=== PATIENT | male | born 1995 | race Hispanic/Latino ===

== ENCOUNTER 2018-11-22 16:28 | Emergency (ER) | payer MEDICARE ==
[2018-11-22 17:05] VITALS: BP 125/82; PULSE 98; RESP 20; TEMP 98.6; O2SAT 96
--- NOTE | 2018-11-22 17:07 | C.PDOC ---
History Of Present Illness Patient is a 23 year old male, with a PMHx of mental retardation, ADHD, ADD, and autism, who presents [facility] the ED from his shelter for evaluation of blood in his stool, as per his aide. Patient states that when he was trying to go to the bathroom he pushed too hard and then when he went a second time he ended up with blood in his stool. He states that this has happened intermittently in the past. Patient denies any nausea, vomiting, abdominal pain, diarrhea, or weakness. Time Seen by Provider: 11/22/18 16:54 Chief Complaint (Nursing): Abdominal Pain History Per: Patient, Other (aide ) History/Exam Limitations: no limitations Onset/Duration Of Symptoms: Days Associated Symptoms: denies: Nausea, Vomiting, Diarrhea, Other (weakness) Recent travel outside of the [place]: No Additional History Per: Patient Past Medical History Reviewed: Historical Data, Nursing Documentation, Vital Signs Vital Signs: Last Vital Signs Temp 98.6 F 11/22/18 16:40 Pulse 98 H 11/22/18 16:40 Resp 20 11/22/18 16:40 BP 125/82 11/22/18 16:40 Pulse Ox 96 11/22/18 16:40 - Medical History PMH: HTN Surgical History: No Surg Hx Family History: States: No Known Family Hx - Social History Hx Alcohol Use: No Hx Substance Use: No - Immunization History Hx Influenza Vaccination: (unknown) Review Of Systems Constitutional: Negative for: Weakness Gastrointestinal: Positive for: Hematochezia. Negative for: Nausea, Vomiting, Abdominal Pain, Diarrhea Physical Exam - Physical Exam Appears: Non-toxic, No Acute Distress Skin: Normal Color, Warm, Dry Head: Atraumatic, Normacephalic Eye(s): bilateral: Normal Inspection Oral Mucosa: Moist Neck: Normal ROM, Supple Chest: Symmetrical, No Deformity Cardiovascular: Rhythm Regular, No Murmur Respiratory: Normal Breath Sounds, No Rales, No Rhonchi, No Wheezing Gastrointestinal/Abdominal: Soft, No Tenderness, Other (obese) Rectal: No Hemorrhoids (external ), Other (active bleeding or external fissures. Patient declined digital exam. ) Neurological/Psych: Normal Speech (asking questions ), Normal Motor ED Course And Treatment O2 Sat by Pulse Oximetry: 96 (on RA) Pulse Ox Interpretation: Normal Medical Decision Making Medical Decision Making: Impression: No active bleeding. Patient declined digital exam. Internal hemorrhoids, constipation, and bleeding with bowel movements. Patient's team asked for psychiatric evaluation because he was becoming agitated, but patient was agitated because he wanted to leave. No psychiatric evaluation today. Discussed care with manager treasury over phone. Agreed with care and discharge. Patient was discharged home and team was instructed to have patient follow up with PMD. Disposition Counseled Patient/Family Regarding: Diagnosis, Need For Followup - Disposition Disposition: HOME/ ROUTINE Disposition Time: 17:07 Condition: STABLE Additional Instructions: Please follow up with your regular doctor for further evaluation. No active bleeding at this time. Instructions: Bloody Stools, Adult (DC) Forms: General Discharge Instructions - POA Present On Arrival: None - Clinical Impression Clinical Impression: Rectal bleeding - Scribe Statement The provider has reviewed the documentation as recorded by the Abby Lockhart All medical record entries made by the Abby were at my direction and personally dictated by me. I have reviewed the chart and agree that the record accurately reflects my personal performance of the history, physical exam, medical decision making, and the department course for this patient. I have also personally directed, reviewed, and agree with the discharge instructions and disposition.
== END 2018-11-22 17:56 | disposition home or self-care (01) ==
LOC: C.ER 16:28
DX: K62.5 Hemorrhage of anus and rectum (principal)

== ENCOUNTER 2018-12-08 17:52 | Emergency (ER) | payer MEDICARE, OTHER ==
[2018-12-08] MEDS ORDERED: Sodium Chloride 0.9% 1,000 ML IV ONE (18:11)
--- NOTE | 2018-12-08 18:22 | C.PDOC ---
History Of Present Illness 23 y/o male presents to the ER complaining of fever,cough, vomiting, weakness, and malaise which has been present for the past 1 week. Patient states that his last vomiting episode was [employer]. Patient denies having CP, SOB, abdominal pain, and diarrhea. <Aidee Neri - Last Filed: 12/08/18 18:49> History Per: Patient History/Exam Limitations: no limitations Onset/Duration Of Symptoms: Days Current Symptoms Are (Timing): Still Present Severity: Moderate <Aidee Neri - Last Filed: 12/08/18 18:49> <Nunu Caliyumiko - Last Filed: 12/08/18 21:03> Time Seen by Provider: 12/08/18 18:18 Chief Complaint (Nursing): Fever Past Medical History Reviewed: Historical Data, Nursing Documentation, Vital Signs Vital Signs: Last Vital Signs Temp 102.6 F H 12/08/18 18:08 Pulse 108 H 12/08/18 18:08 Resp 20 12/08/18 18:08 BP 124/86 12/08/18 18:08 Pulse Ox 95 12/08/18 18:08 - Medical History PMH: HTN Surgical History: No Surg Hx Family History: States: No Known Family Hx - Social History Hx Alcohol Use: No Hx Substance Use: No - Immunization History Hx Tetanus Toxoid Vaccination: No Hx Influenza Vaccination: Yes (unknown) Hx Pneumococcal Vaccination: No <Aidee Neri - Last Filed: 12/08/18 18:49> Vital Signs: Last Vital Signs Temp 101.9 F H 12/08/18 19:00 Pulse 108 H 12/08/18 18:08 Resp 20 12/08/18 18:08 BP 124/86 12/08/18 18:08 Pulse Ox 95 12/08/18 18:49 <Leah Cali - Last Filed: 12/08/18 21:03> Review Of Systems Except As Marked, All Systems Reviewed And Found Negative. Constitutional: Positive for: Fever, Weakness, Malaise. Negative for: Chills Respiratory: Positive for: Cough. Negative for: Shortness of Breath Gastrointestinal: Positive for: Vomiting. Negative for: Abdominal Pain, Diarrhea <Aidee Neri - Last Filed: 12/08/18 18:49> Physical Exam - Physical Exam Appears: Non-toxic, No Acute Distress Skin: Normal Color, Warm, Dry Head: Atraumatic, Normacephalic Eye(s): bilateral: Normal Inspection Ear(s): Bilateral: Normal Nose: Normal Oral Mucosa: Moist Throat: Normal, No Erythema, No Exudate Cardiovascular: Rhythm Regular Respiratory: Normal Breath Sounds, No Rales, No Rhonchi, No Wheezing Neurological/Psych: Oriented x3, Normal Speech <DaronAidee - Last Filed: 12/08/18 18:49> ED Course And Treatment - Laboratory Results Result Diagrams: 12/08/18 18:20 12/08/18 18:20 O2 Sat by Pulse Oximetry: 95 (RA) Pulse Ox Interpretation: Normal - Radiology CXR: Interpreted by Me, Viewed By Me CXR Interpretation: Yes: Other (left lobe pneumonia) <DaronAidee - Last Filed: 12/08/18 18:49> - Laboratory Results Result Diagrams: 12/08/18 18:20 12/08/18 18:20 Lab Results: Total Bilirubin 0.8 mg/dL (0.2-1.3) 12/08/18 18:20 AST 39 U/L (17-59) 12/08/18 18:20 ALT 55 U/L (21-72) 12/08/18 18:20 Alkaline Phosphatase 54 U/L (38-126) 12/08/18 18:20 Total Protein 8.0 g/dL (6.3-8.3) 12/08/18 18:20 Albumin 4.9 g/dL (3.5-5.0) 12/08/18 18:20 Globulin 3.1 gm/dL (2.2-3.9) 12/08/18 18:20 Albumin/Globulin Ratio 1.6 (1.0-2.1) 12/08/18 18:20 Pulse Ox Interpretation: Normal Progress Note: pt tolerating po. feels better Reevaluation Time: 20:51 Reassessment Condition: Improved <Leah Cali - Last Filed: 12/08/18 21:03> Progress - Data Reviewed Data Reviewed: Lab, Diagnostic imaging, Old records <Aidee Neri - Last Filed: 12/08/18 18:49> Medical Decision Making Medical Decision Making: Plan: --Labs --CXR --Rocephin IV --Zithromax IV --Zofran IV --IV Fluids <Aidee Neri - Last Filed: 12/08/18 18:49> Disposition Counseled Patient/Family Regarding: Diagnosis - Disposition Disposition Time: 19:00 <Aidee Neri - Last Filed: 12/08/18 18:49> Counseled Patient/Family Regarding: Studies Performed, Diagnosis, Need For Followup, Rx Given <Leah Cali - Last Filed: 12/08/18 21:03> - Disposition Referrals: [facility] [Outside] [facility] [Outside] Disposition: HOME/ ROUTINE Condition: FAIR Additional Instructions: Please return if symptoms recur Prescriptions: Albuterol HFA [Ventolin HFA 90 mcg/actuation (8 g)] 2 puff IH [id number] #1 puff Azithromycin [Zithromax Tri-Josafat] 500 mg PO DAILY #3 tablet Ondansetron ODT [Zofran ODT] 1 odt PO BID PRN #6 odt PRN Reason: Nausea/Vomiting Instructions: Pneumonia, Adult (DC) Forms: [employer] (Paraguayan) - Clinical Impression Clinical Impression: Fever, Vomiting, Cough, Pneumonia - Scribe Statement The provider has reviewed the documentation as recorded by the Abby Red Provider Attestation: All medical record entries made by the Ericksonibdaquan were at my direction and personally dictated by me. I have reviewed the chart and agree that the record accurately reflects my personal performance of the history, physical exam, medical decision making, and the department course for this patient. I have also personally directed, reviewed, and agree with the discharge instructions and disposition. <Aidee Neri - Last Filed: 12/08/18 18:49> Physician Patient Turnover Patient Signed Over To: Leah Cali Handoff Comments: FU LABS, CXR, DISPO <DaronAidee - Last Filed: 12/08/18 18:49>
[2018-12-08 18:24] LABS: BASO % 0.6 % (0.0-2.0); EOS # 0.1 K/uL (0.0-0.7); EOS % 0.7 % (0.0-4.0); HEMOGLOBIN 15.1 g/dL (12.0-18.0); LYMPH # 1.4 K/uL (1.0-4.3); LYMPH % 16.7 % (20.0-40.0); MEAN CELL VOLUME 86.6 fL (80.0-94.0); MEAN CORPUSCULAR HEMOGLOBIN 29.5 pg (27.0-31.0); MEAN CORPUSCULAR HGB CONC 34.1 g/dL (33.0-37.0); MEAN PLATELET VOLUME 7.5 fL (7.2-11.7); MONO # 0.9 K/uL (0.0-0.8); MONO % 10.7 % (0.0-10.0); NEUT # 6.1 K/uL (1.8-7.0); NEUT % 71.3 % (50.0-75.0); NRBC % 0.1 % (0.0-2.0); RBC 5.1 Mil/uL (4.40-5.90); RED CELL DISTRIBUTION WIDTH 13.1 % (11.5-14.5); WHITE BLOOD COUNT 8.6 K/uL (4.8-10.8)
[2018-12-08 18:27] VITALS: RESP 20
[2018-12-08] MEDS ORDERED: Azithromycin 500 MG in Sodium Chloride 0.9% 250 ML IV STA (18:37)
[2018-12-08 18:42] LABS: ALB/GLOB RATIO 1.6 (1.0-2.1); ALBUMIN 4.9 g/dL (3.5-5.0); ALT/SGPT 55 U/L (21-72); AST/SGOT 39 U/L (17-59); BLOOD UREA NITROGEN 10 mg/dL (9-20); CALCIUM 8.5 mg/dl (8.6-10.4); GFR NON-AFRICAN AMERICAN > 60
--- NOTE | 2018-12-08 18:49 | RAD ---
HISTORY: FEVER COUGH COMPARISON: None available. TECHNIQUE: Chest PA and lateral FINDINGS: LUNGS: Hypoinflation. Consolidation in the lingula consistent with pneumonia. Please note that chest x-ray has limited sensitivity for the detection of pulmonary masses. PLEURA: No significant pleural effusion identified. No definite pneumothorax . CARDIOVASCULAR: The cardiomediastinal silhouette appears within normal limits of size. No atherosclerotic calcification present. OSSEOUS STRUCTURES: No acute osseous abnormality identified. VISUALIZED UPPER ABDOMEN: Mild elevation of the right hemidiaphragm. OTHER FINDINGS: None. IMPRESSION: Lingular consolidation consistent with pneumonia.
[2018-12-08] MEDS ORDERED: Azithromycin 500mg/250ML NS 500 MG/250 ML BAG IVPB ONE (18:54)
[2018-12-08 21:15] VITALS: BP 111/69; PULSE 80; TEMP 98.5; O2SAT 96
== END 2018-12-08 21:21 | disposition home or self-care (01) ==
LOC: C.ER 17:52
DX: J18.9 Pneumonia, unspecified organism (principal); R11.10 Vomiting, unspecified; I10 Essential (primary) hypertension
CPT/HCPCS: 71046; 80053; 85025; 87804; 96365; 96368; 96375; 99285; J0456; J0696; J2405; J7030; J7050

== ENCOUNTER 2018-12-19 09:35 | Emergency (ER) | payer MEDICARE, OTHER | END 2018-12-19 10:07 | disposition left against medical advice (07) | LOC: C.ER 09:35 | DX: Z02.89 Encounter for other administrative examinations (principal) ==

== ENCOUNTER 2018-12-19 12:17 | Emergency (ER) | payer MEDICARE, OTHER ==
[2018-12-19 12:49] VITALS: O2SAT 96
[2018-12-19 14:59] LABS: BARBITURATES, UR NEGATIVE (NEGATIVE); BENZODIAZEPINES, UR NEGATIVE (NEGATIVE); OPIATES, UR NEGATIVE (NEGATIVE); PHENCYCLIDINE, UR NEGATIVE (NEGATIVE)
--- NOTE | 2018-12-19 15:03 | C.PDOC ---
History Of Present Illness 23 year old male brought by EMS from [facility] for psychiatric evaluation. Patient has a history of Down syndrome. He says that he doesn't like his roommate because he is "very rude and always has his music on so high" and that he dreams about killing him regularly. He states that he would never act on his dreams. He denies suicidal ideation, drug use, and any physical complaints. Time Seen by Provider: 12/19/18 12:45 Chief Complaint (Nursing): Psychiatric Evaluation History Per: Patient, EMS History/Exam Limitations: other (poor historian) Onset/Duration Of Symptoms: Hrs Suicide/Self Injury Attempted (Context): None Modifying Factor(s): None Severity: None Associated Symptoms: denies: Suicidal Thoughts, Suicidal Plan Past Medical History Reviewed: Historical Data, Nursing Documentation, Vital Signs Vital Signs: Last Vital Signs Temp 98.2 F 12/19/18 12:33 Pulse 100 H 12/19/18 12:33 Resp 20 12/19/18 12:33 BP 137/85 12/19/18 12:33 Pulse Ox 96 12/19/18 12:33 - Medical History PMH: Diabetes, HTN Denies: Hepatitis (Patient denied.), HIV (Patient denied.), Seizures (Patient denied.), Sexually Transmitted Disease (Patient denied.) Surgical History: No Surg Hx Family History: States: Unknown Family Hx - Social History Hx Alcohol Use: No Hx Substance Use: No - Immunization History Hx Tetanus Toxoid Vaccination: No Hx Influenza Vaccination: (unknown) Hx Pneumococcal Vaccination: No Review Of Systems Constitutional: Negative for: Fever, Weakness Cardiovascular: Negative for: Chest Pain, Palpitations Respiratory: Negative for: Cough, Shortness of Breath Gastrointestinal: Negative for: Nausea, Vomiting, Abdominal Pain Neurological: Negative for: Weakness, Numbness, Dizziness Psych: Negative for: Suicidal ideation Physical Exam - Physical Exam Appears: Well, Non-toxic, No Acute Distress Skin: Normal Color, Warm, Dry Head: Atraumatic, Normacephalic Neck: Normal ROM, Supple Chest: Symmetrical, No Deformity Cardiovascular: Rhythm Regular, No Murmur Respiratory: No Accessory Muscle Use, No Rales, No Rhonchi, No Wheezing Gastrointestinal/Abdominal: Soft, No Tenderness Extremity: Capillary Refill (<2 seconds) Extremity: Bilateral: Atraumatic, Normal Color And Temperature Pulses: Left Radial: Normal, Right Radial: Normal Neurological/Psych: Oriented x3, Normal Speech, Normal Cognition ED Course And Treatment O2 Sat by Pulse Oximetry: 96 (RA) Progress Note: Drug screen ordered for patient. Patient is under 1:1 observation. Disposition Counseled Patient/Family Regarding: Diagnosis, Need For Followup - Disposition Referrals: [facility] [Outside] Disposition: HOME/ ROUTINE Disposition Time: 16:00 Condition: STABLE Additional Instructions: FOLLOW UP WITH YOUR DOCTOR IN 1-2 DAYS RETURN TO EMERGENCY ROOM IF YOU HAVE ANY CONCERNING SYMPTOMS Forms: [employer] (Irish), General Discharge Instructions Print Language: ALBANIAN - Clinical Impression Clinical Impression: Evaluation by psychiatric service required - Scribe Statement The provider has reviewed the documentation as recorded by the Scribe (Smitha Izaguirre) All medical record entries made by the Scribe were at my direction and personally dictated by me. I have reviewed the chart and agree that the record accurately reflects my personal performance of the history, physical exam, medical decision making, and the department course for this patient. I have also personally directed, reviewed, and agree with the discharge instructions and disposition.
[2018-12-19 16:22] VITALS: BP 105/64; PULSE 85; RESP 18; TEMP 98
== END 2018-12-19 17:18 | disposition home or self-care (01) ==
LOC: C.ER 12:17
DX: Z00.8 Encounter for other general examination (principal)
CPT/HCPCS: 99284; G0480